=== PATIENT | male | born 1965 | race Caucasian/White ===

== ENCOUNTER 2017-12-28 12:51 | Outpatient (CLI) ==
--- NOTE | 2017-12-28 14:48 | US ---
EXAM: Bilateral carotid artery Doppler History: Dizziness. Comparison: Carotid Doppler 04/11/2015 Technique: Multiple sonographic images through the bilateral internal carotid arteries were obtained . Color duplex Doppler was used to interrogate vascular flow. Findings: The right ICA peak systolic velocity is within normal limits measuring 82 cm/sec. The right ICA/cca P SV ratio is normal at 0.80. The right vertebral artery is patent and demonstrates antegrade flow. Gr ay scale images demonstrate mild plaque buildup within the right internal carotid artery. The left ICA peak systolic velocity is within normal limits measuring 80 cm/sec. The left ICA/cca PS V ratio is normal at 1.0. The left vertebral artery is patent and demonstrates antegrade flow. Noe scale images demonstrate mild to moderate plaque buildup within the left internal carotid artery Impression: No significant hemodynamic stenosis of the bilateral internal carotid arteries
== END 2017-12-28 12:52 | disposition home or self-care (01) ==
LOC: RAD 12:51
PROVIDERS: ATTEND Internal Medicine
DX: R42 Dizziness and giddiness (principal)